=== PATIENT | male | born 1995 | race Two or more races ===

== ENCOUNTER 2018-06-16 20:06 | Emergency (ER) | payer MEDICAID ==
[2018-06-16 23:12] VITALS: BP 129/82
== END 2018-06-17 01:25 | disposition left against medical advice (07) ==
LOC: ED 20:06
DX: Z53.21 Procedure and treatment not carried out due to patient leaving prior to being seen by health care provider (principal)
CPT/HCPCS: 99283

== ENCOUNTER 2019-11-04 09:30 | Outpatient (CLI) | payer MEDICAID | END 2019-11-04 09:31 | disposition EMS.NT | LOC: EMS 09:30 | PROVIDERS: ATTEND Surgery | DX: Z04.1 Encounter for examination and observation following transport accident (principal) ==

== ENCOUNTER 2020-04-07 16:29 | Emergency (ER) | payer MEDICAID ==
[2020-04-07 16:40] VITALS: BP 137/81
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
== END 2020-04-07 17:15 | disposition home or self-care (01) ==
LOC: ED 16:29
DX: S05.11XA Contusion of eyeball and orbital tissues, right eye, initial encounter (principal); Y04.2XXA Assault by strike against or bumped into by another person, initial encounter
CPT/HCPCS: 99282; 99284

== ENCOUNTER 2020-09-26 13:17 | Outpatient (CLI) | payer MEDICAID | END 2020-09-26 13:18 | disposition home or self-care (01) | LOC: COV 13:17 | PROVIDERS: ATTEND Family Medicine | DX: Z20.828 Contact with and (suspected) exposure to other viral communicable diseases (principal) ==

== ENCOUNTER 2021-06-08 13:02 | Emergency (ER) | payer MEDICAID ==
--- NOTE | 2021-06-08 13:43 | ED Physician Documentation ---
PD HPI UPPER EXT INJURY - Stated complaint Stated Complaint: RIGHT WRIST/ARM INJURY - Chief complaint Chief Complaint: Ext Problem - History obtained from History obtained from: Patient - History of Present Illness Location: Right, Wrist Type of injury: Fall Where injury occurred: Home Timing - onset: Last night Timing - duration: Days (1) Timing - details: Abrupt onset, Still present Improved by: Rest, Immobilization Worsened by: Moving, Palpating Associated symptoms: Swelling. No: Weakness, Numbness Contributing factors: No: Anticoagulated Similar symptoms before: Has not had sx before Recently seen: Not recently seen - Additonal information Additional information: 26-year-old male fell backwards yesterday and caught himself with his outstretched right hand. He has pain in the right wrist now that has progressively worsened. It is mostly to the ulnar aspect of the wrist and he has some difficulty with flexion extension of the wrist. Review of Systems Constitutional: denies: Fever Respiratory: denies: Cough GI: denies: Vomiting PD PAST MEDICAL HISTORY - Past Surgical History Past Surgical History: No - Present Medications Home Medications: Ambulatory Orders Medication Instructions Recorded Confirmed No Known Home Medications 06/16/18 04/07/20 - Allergies Allergies/Adverse Reactions: Allergies Allergy/AdvReac Type Severity Reaction Status Date / Time No Known Drug Allergies Allergy Verified 06/08/21 13:10 - Immunizations Immunizations are current?: Yes PD ED PE NORMAL - Vitals Vital signs reviewed: Yes (hypertensive ) - General General: Alert and oriented X 3, No acute distress, Well developed/nourished - HEENT HEENT: Atraumatic, PERRL, EOMI - Respiratory Respiratory: No respiratory distress - Derm Derm: Normal color, Warm and dry, No rash - Extremities Extremities: Other (swelling and point tenderness to the ulnar aspect of the right wrist with decreased dorsiflexion of the wrist. distal n/v intact. ) - Neuro Neuro: Alert and oriented X 3, forge helper 2-12 intact, No motor deficit, No sensory deficit, Normal speech Eye Opening: Spontaneous Motor: Obeys Commands Verbal: Oriented GCS Score: 15 - Psych Psych: Normal mood, Normal affect Results - Vitals Vitals: Vital Signs - 24 hr 06/08/21 06/08/21 13:08 14:34 Temperature 36 C L 36.8 C Heart Rate 84 88 Respiratory 15 16 Rate Blood Pressure 132/69 H 120/68 O2 Saturation 99 97 Oxygen O2 Source Room air - Rads (name of study) wrist Radiology: Prelim report reviewed (Impression: Likely artifactual lucency along the waist of the scaphoid. However, please correlate with focal tenderness. If there is focal tenderness at this point, please consider wrist CT for further evaluation. Remote healed distal fifth metacarpal fracture.), EMP read indepedently, See rad report Procedures - Splint (location) right wrist Splint applied by: Tech Type of splint: Fiberglass, Volar cock up Other: Patient tolerated well, No complications, Neurovascular intact, Good alignment PD MEDICAL DECISION MAKING - ED course Complexity details: reviewed results, re-evaluated patient, considered differential, d/w patient ED course: 26-year-old male with a sprain to his right wrist does not have pain over the anatomic snuffbox. He is instructed to follow-up with orthopedics for reevaluation in 1 week. He is placed into a volar splint. Departure - Departure Disposition: 01 Home, Self Care Clinical Impression: Right wrist sprain Qualifiers: Encounter type: initial encounter Qualified Code(s): S63.501A - Unspecified sprain of right wrist, initial encounter Condition: Stable Instructions: ED Sprain Wrist Follow-Up: Niko Gonzales MD [Provider Admit Priv/Credential] - Forms: Activity restrictions
--- NOTE | 2021-06-08 13:56 | XRAY Report ---
PROCEDURE: Wrist 4 View RT INDICATIONS: Trauma TECHNIQUE: views of the wrist were acquired. COMPARISON: None FINDINGS: Bones: On the waist of the scaphoid, there is minimal linear lucency seen, with apparent sclerotic m argins. No additional potential acute fractures or dislocations. There is a remote, healed distal fif th metacarpal fracture. No suspicious bony lesions. Soft tissues: No suspicious soft tissue calcifications. IMPRESSION: Likely artifactual lucency along the waist of the scaphoid. However, please correlate with focal tend erness. If there is focal tenderness at this site, please consider wrist CT for further evaluation. Remote healed distal fifth metacarpal fracture. Reviewed by: Randall Jorge MD on 06/08/2021 12:55 PM [facility] Approved by: Randall Jorge MD on 06/08/2021 12:55 PM [facility] Station ID: [id number]
[2021-06-08 14:35] VITALS: BP 120/68
== END 2021-06-08 14:44 | disposition home or self-care (01) ==
LOC: ED 13:02
DX: S63.501A Unspecified sprain of right wrist, initial encounter (principal); W19.XXXA Unspecified fall, initial encounter; Y92.009 Unspecified place in unspecified non-institutional (private) residence as the place of occurrence of the external cause
CPT/HCPCS: 29125; 99282; 99283

== ENCOUNTER 2021-07-21 13:07 | Outpatient (CLI) | payer MEDICAID | END 2021-07-21 13:08 | disposition home or self-care (01) | LOC: COV 13:07 | PROVIDERS: ATTEND Family Medicine | DX: U07.1 COVID-19 (principal) ==

== ENCOUNTER 2023-06-05 11:23 | Outpatient (CLI) | payer MEDICAID | END 2023-06-05 11:24 | disposition EMS.NT | LOC: EMS 11:23 | DX: F41.9 Anxiety disorder, unspecified (principal) ==

== ENCOUNTER 2023-07-25 13:37 | Emergency (ER) | payer MEDICAID ==
[2023-07-25 13:55] VITALS: BP 137/86; O2SAT 99
[2023-07-25 14:09] LABS: BILIRUBIN,URINE NEGATIVE (NEGATIVE); GLUCOSE, URINE (UA) NEGATIVE (NEGATIVE); KETONES,URINE (UA) NEGATIVE (NEGATIVE); LEUKOCYTE ESTERASE, URINE NEGATIVE (NEGATIVE); NITRITE,URINE NEGATIVE (NEGATIVE); OCCULT BLOOD,URINE NEGATIVE (NEGATIVE); PH,URINE 6.5 PH (5.0-7.5); PROTEIN,URINE NEGATIVE (NEGATIVE); UROBILINOGEN,URINE 1 (NORMAL) E.U./dL (NORMAL)
[2023-07-25 14:16] LABS: CLARITY,URINE CLEAR (CLEAR)
[2023-07-25] MEDS ORDERED: cefTRIAXone 500 MG VIAL IM STA (14:20)
[2023-07-25] MEDS ORDERED: LIDOCAINE 1% 2 ML VIAL MC ONE (14:20)
--- NOTE | 2023-07-25 14:23 | ED Physician Documentation ---
History of Present Illness - Stated complaint Stated Complaint: - Chief complaint Chief Complaint: UTI - Additonal information Additional information: 28-year-old male presents emergency department for evaluation of 24 hours dysuria as well as some clear penile discharge. He noticed this after his last sexual encounter with his current sexual partner. He reports that he does have concerned she is having sex outside the relationship and this week she bought boric acid at the pharmacy to treat her own vaginal health. Review of Systems Constitutional: denies: Fever, Chills : reports: Dysuria, Discharge Skin: reports: Reviewed and negative PD PAST MEDICAL HISTORY - Past Medical History Past Medical History: Yes Cardiovascular: None Respiratory: None Neuro: None Endocrine/Autoimmune: None GI: None : None HEENT: None Psych: Anxiety Musculoskeletal: None Derm: None - Past Surgical History Past Surgical History: No Ortho: Other - Present Medications Home Medications: Ambulatory Orders Medication Instructions Recorded Confirmed Doxycycline Hyclate 100 mg PO BID #14 cap 07/25/23 - Allergies Allergies/Adverse Reactions: Allergies Allergy/AdvReac Type Severity Reaction Status Date / Time No Known Drug Allergies Allergy Verified 07/25/23 13:49 - Social History Does the pt smoke?: No Smoking Status: Former smoker Does the pt have substance abuse?: No - Immunizations Immunizations are current?: Yes PD ED PE NORMAL - Male Male : Other (Positive cremasteric. No scrotal or testicular tenderness elicited. Clear penile discharge from the urethra.) Results - Vitals Vitals: Vital Signs - 24 hr 07/25/23 13:50 Temperature 37.1 C Heart Rate 77 Respiratory 16 Rate Blood Pressure 137/86 H O2 Saturation 99 Oxygen O2 Source Room air - Labs Labs: Laboratory Tests 07/25/23 14:01 Urine Color YELLOW Urine Clarity CLEAR Urine pH 6.5 Ur Specific [place] 1.020 Urine Protein NEGATIVE Urine Glucose (UA) NEGATIVE Urine Ketones NEGATIVE Urine Occult Blood NEGATIVE Urine Nitrite NEGATIVE Urine Bilirubin NEGATIVE Urine Urobilinogen 1 (NORMAL) Ur Leukocyte Esterase NEGATIVE Ur Microscopic Review NOT INDICATED Urine Culture Comments NOT INDICATED PD Medical Decision Making - ED course Complexity details: d/w patient ED course: 28-year-old male here for dysuria and clear penile discharge now for 24 hours. He is concerned that his sexual partner has had sex outside the relationship. Urinalysis is not consistent with infection. Given concern for possible STD he was treated with a gram of ceftriaxone here in the emergency department and will be discharged with a week of doxycycline. He is advised to have his partner tested and treated before resuming sexual activity. The usual emergent return precautions for worsening symptoms was discussed. Departure - Departure Disposition: 01 Home, Self Care Clinical Impression: Urethritis Condition: Stable Instructions: ED STD Male Treated, ED Urethritis Infec Vs Inflam Male Prescriptions: Doxycycline Hyclate 100 mg PO BID #14 cap Comments: Kennedy you have been having some pain and burning with urination as well as some discharge from the tip of your penis. You do have concerns that your sexual partner may have had sex outside your relationship. Your urine today did not show any signs of infection, but sexually-transmitted diseases often show no signs of infection within the urine. We are screening your urine for chlamydia, gonorrhea and trichomonas. However it would be appropriate to treat you empirically for concerns of sexually transmitted disease. We gave you an injection of an antibiotic called ceftriaxone today. I have sent a prescription for doxycycline to the [facility] in [place]. You should take twice daily for the next week. With the antibiotics I would expect improved symptoms over the next 48 to 72 hours. Return to the ER if not improving or worsening. Your recent partner should have screening and treatment of STD herself before reengaging in sexual activity.
[2023-07-25 17:17] LABS: CHLAMYDIA TRACHOMATIS DNA NEGATIVE (NEGATIVE); TRICHOMONAS VAGINALIS DNA NEGATIVE (NEGATIVE)
[2023-07-25 17:22] LABS: NEISSERIA GONORRHOEAE DNA POSITIVE (NEGATIVE)
== END 2023-07-25 14:47 | disposition home or self-care (01) ==
LOC: ED 13:37
DX: N34.2 Other urethritis (principal); A54.9 Gonococcal infection, unspecified; Z87.891 Personal history of nicotine dependence
CPT/HCPCS: 81001; 81003; 87086; 87491; 87591; 87661; 96372; 99283; 99284